=== PATIENT | male | born 1995 | race Caucasian/White ===

== ENCOUNTER 2017-12-01 22:35 | Emergency (ER) | payer MEDICAID, SELFPAY ==
[2017-12-01 22:40] VITALS: BP 139/83; PULSE 111; RESP 16; TEMP 37; O2SAT 97; BMI 16.0
--- NOTE | 2017-12-01 23:20 | [facility].EDGENADL ---
ED Disposition Clinical Impression: Pharyngitis Qualifiers: Pharyngitis/tonsillitis etiology: unspecified etiology Qualified Code(s): J02.9 - Acute pharyngitis, unspecified Disposition: Home, Self-Care Condition on Discharge: Good Instructions: DI for Cough -- Adult Additional Instructions: fluids and use meds and see pcp for follow up Prescriptions: Azithromycin [Zithromax 250mg tab] 250 mg PO DIRECTED #6 tab Benzonatate [Tessalon Perle 100mg Cap] 100 mg PO TID #30 cap predniSONE [Prednisone 20mg Tab] 20 mg PO DAILY #10 tab - Critical Care Critical Care Time: No Attestation: On 12/01/17, the high probability of a clinically significant, sudden or life threatening deterioration of the following system(s) required my full and direct attention, intervention and personal management. The time I documented below is in addition to time spent performing reported procedures but includes the following listed in this critical care notation. Medical Decision Making - Medical Records Medical records reviewed: Yes: I reviewed the patient's medical records. Vital Signs: 12/01/17 22:40 Temperature 98.6 F Temperature Source Oral Pulse Rate [Right Brachial] 111 H Respiratory Rate 16 Blood Pressure [Right Arm] 139/83 Blood Pressure Mean [Right Arm] 101 Blood Pressure Source [Right Arm] Automatic Cuff Blood Pressure Position [Right Arm] Sitting 02 Sat by Pulse Oximetry 97 Oxygen Delivery Method Room Air - Lab Data Lab results reviewed: Yes: I reviewed the patient's lab results. Lab Results 12/01/17 22:47: Influenza Type A Ag Negative, Influenza Type B Ag Negative, Group A Strep Rapid Negative 12/01/17 23:00: Monoscreen Negative Orders (Tests/Meds): ED MEDICATIONS Discontinued Medications Generic Name Dose Route Start Last Admin Trade Name Freq PRN Reason Stop Dose Admin Sodium Chloride 500 mls @ 999 mls/hr 12/01/17 23:00 12/01/17 23:17 Sod Chlor 0.9% 1000ml Bag IV 12/01/17 23:30 999 mls/hr .Q31M JEAN Administration ORDERS Category Date Time Status Strep Screen Confirmation Stat Micro 12/01/17 22:47 Received - [place] Inquiry Pt receiving controlled substance: No General Adult HPI - General Chief complaint: PAIN Stated complaint: sore throat, fatigue Time Seen by Provider: 12/01/17 23:20 Mode of Arrival: Ambulatory Source of Information: Patient, Medical Record Limitations: No Limitations Description of Symptoms (Recalled from ER Triage Doc. 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 History I have reviewed the patient's past medical history: Yes - Social History Smoking Status: Never smoker Alcohol Intake: never - Psychiatric History Expresses thoughts of harming self/others: None Suicide Plan Description: No Plan ROS Obtained: Yes All systems reviewed & no additional complaints - Constitutional Constitutional: Denies fever(s) - Eyes Eyes: Denies change in vision - ENT Ears, Nose, Mouth, and Throat: Reports sore throat - Cardiovascular Cardiovascular: Denies chest pain - Respiratory Respiratory: No cough - Gastrointestinal Gastrointestingal: Denies: abdominal pain - Musculoskeletal Musculoskeletal: Denies joint pain - Integumentary/Breasts Skin/Breast: Denies rash - Neurologic Neurologic: Denies seizure-like act
[2017-12-01 23:22] LABS: Strep Scrn Group A (Rapid) Negative (Negative)
[2017-12-01 23:25] LABS: Monoscreen (Rapid) Negative (Negative)
[2017-12-02 00:05] VITALS: BP 00/00; PULSE 90; RESP 18; TEMP 36.6; O2SAT 99
== END 2017-12-02 00:05 | disposition home or self-care (01) ==
PROVIDERS: Emergency Provider Emergency Medicine
DX: J02.9 Acute pharyngitis, unspecified (principal)
CPT/HCPCS: 86318; 87275; 87276; 87430; 96365; 96367; 96375; 99282